=== PATIENT | female | born 1985 | race Caucasian/White ===

== ENCOUNTER → 2018-01-03 | Outpatient (CLI) | payer OTHER | END | disposition home or self-care (01) | LOC: PLD 08:29 → LAB SHORT 08:29 | DX: D22.39 Melanocytic nevi of other parts of face (principal); L82.1 Other seborrheic keratosis | CPT/HCPCS: 88305 ==

== ENCOUNTER → 2018-05-23 | Outpatient (CLI) | payer OTHER | END | disposition home or self-care (01) | LOC: LAB SHORT 11:03 → LAB EV 11:03 | DX: N39.0 Urinary tract infection, site not specified (principal) | CPT/HCPCS: 87077; 87086; 87186 ==

== ENCOUNTER → 2020-02-25 | Outpatient (CLI) | payer OTHER | LOC: LAB EV 15:50 → LAB SHORT 15:50 | DX: N39.0 Urinary tract infection, site not specified (principal) | CPT/HCPCS: 87077; 87086; 87186 ==

== ENCOUNTER → 2020-09-16 | Outpatient (CLI) | payer OTHER | END | disposition home or self-care (01) | LOC: LAB 10:34 → LAB SHORT 10:34 | DX: R35.0 Frequency of micturition (principal) | CPT/HCPCS: 87086 ==

== ENCOUNTER → 2020-09-28 | Outpatient (CLI) | payer OTHER | END | disposition home or self-care (01) | LOC: LAB SHORT 08:07 → LAB EV 08:07 | DX: R30.9 Painful micturition, unspecified (principal) | CPT/HCPCS: 87086 ==

== ENCOUNTER 2021-07-10 12:40 | Observation (INO) | payer OTHER ==
[~2021-07-10] VITALS: Ht 165.1 cm; Wt 90.7 kg
[2021-07-10 13:38] LABS: BASOPHILS ABSOLUTE AUTO 0.06 K/mm3 (0.00-0.23); BASOPHILS PERCENT AUTO 1 % (0-2); EOSINOPHILS ABSOLUTE AUTO 0.19 K/mm3 (0.00-0.68); EOSINOPHILS PERCENT AUTO 2 % (0-6); Hematocrit 41.2 % (33.0-51.0); IMMATURE GRAN ABSOLUTE AUTO 0.03 K/mm3 (0.00-0.10); IMMATURE GRAN PERCENT AUTO 0 % (0-1); LYMPHOCYTES ABSOLUTE AUTO 1.54 K/mm3 (0.84-5.20); LYMPHOCYTES PERCENT AUTO 12 % (21-46); MONOCYTES PERCENT AUTO 8 % (4-13); Mean Corpuscular HGB 26.6 pg (26.0-34.0); Mean Corpuscular HGB Conc 31.6 g/dL (31.5-36.5); Mean Corpuscular Volume 84 fL (80-100); Mean Platelet Volume 10.9 fL (9.1-12.4); NEUTROPHILS ABSOLUTE AUTO 9.63 K/mm3 (1.96-9.15); NEUTROPHILS PERCENT AUTO 77 % (41-73); Platelet Count 364 K/mm3 (150-400); RDW Coefficient Variation 13.2 % (11.7-14.2); RDW Standard Deviation 40.6 fL (35.1-46.3); Red Blood Cell Count 4.89 M/mm3 (3.80-5.20); White Blood Cell Count 12.45 K/mm3 (4.00-11.30)
[2021-07-10 13:52] LABS: International Normalized Ratio 1.04; Prothrombin Time Results 10.9 Sec (9.7-11.5)
[2021-07-10 13:54] LABS: Alanine Aminotransfer (ALT/SGP 188 U/L (12-78); Albumin, Blood 3.6 g/dL (3.4-5.0); Albumin/Globulin Ratio 0.9 (0.8-1.8); Alk Phos 378 U/L (50-136); Anion Gap 5 mmol/L (6-16); Aspartate Aminotrans (AST/SGOT 280 U/L (12-37); Bilirubin, Total 2.9 mg/dL (0.1-1.0); Blood Urea Nitrogen 12 mg/dL (8-24); CO2, Blood 24 mmol/L (21-32); Calcium, Blood 9.9 mg/dL (8.5-10.1); Chloride, Blood 110 mmol/L (98-108); Globulin, Blood 4.1 g/dL (2.2-4.0); Glomerular Filtration Rate >60 (60-); Glucose, Blood 123 mg/dL (70-99); Potassium, Blood 4.2 mmol/L (3.5-5.5); Sodium, Blood 139 mmol/L (136-145); Total Protein, Blood 7.7 g/dL (6.4-8.2)
[2021-07-10 13:55] LABS: Source, Urine Clean Catch
[2021-07-10 14:00] LABS: Appearance, Urine Hazy (Clear); Blood, Urine Neg (Neg); Color, Urine Amber (P-Yellow); Glucose Qualitative, Urine Neg (Neg); Ketones, Urine 2+ (Neg); Leukocyte Esterase, Urine 1+ (Neg); Nitrite, Urine Neg (Neg); Protein, Urine 2+ (Neg); Urobilinogen, Urine 2+ (Normal)
[2021-07-10 14:09] LABS: Bilirubin, Urine 2+ (Neg)
[2021-07-10 14:12] LABS: Amorphous Light (0-Heavy); Bacteria Many /hpf; Mucus Light (0-Heavy); Red Blood Cells, Urine 0-2 /hpf (0-2); Squamous Epithelial Cells Many /hpf (Few)
[2021-07-10 14:13] LABS: Hyaline Casts 0-2 /lpf (0-2); Transitional Epithelial Cells Rare /hpf (0-Rare)
[2021-07-10] MEDS ORDERED: CLON2 (14:13)
[2021-07-10] MEDS ORDERED: BUPROPION HCL200 MG PO (14:14)
[2021-07-10] MEDS ORDERED: QUET100 PO (14:15)
[2021-07-10] MEDS ORDERED: LAMO25 PO (14:15)
[2021-07-10 15:36] LABS: Influenza A, PCR NEGATIVE (NEGATIVE); Influenza B, PCR NEGATIVE (NEGATIVE); Resp Syncytial Virus, PCR NEGATIVE (NEGATIVE); SARS-Cov-2 (COVID-19) PCR, MMC NEGATIVE (NEGATIVE)
--- NOTE | 2021-07-10 16:12 | NUR ---
07/10/21 1612 Shae Holguin PATIENT IS ON SCHEDULED ANTIBIOTICS. RECEIVED ZOYSN 4.5GM PRIOR TO ARRIVING IN THE OR.
--- NOTE | 2021-07-10 18:06 | NUR ---
PT CAME IN TODAY FROM THE ED DIRECTLY TO SURGERY DUE TO CHOLECYSTITIS. PT HAD LAP XAVIER. PT ADMITTED BC OF ONE EPISODE OF BLACK EMESIS. PT DENIES USE OF NSAIDS. PT IS NOW HAVE 3 DRESSINGS AND VALERIE DRAIN ON HER RIGHT SIDE, OUTPUT MINIMAL AND BRIGHT RED. PT IS ASLEEP. DRESSING C/D/I. VSS. BED IS IN THE LOWEST POSITION AND CALL LIGHT WITHIN REACH
--- NOTE | 2021-07-10 20:38 | NUR ---
PT. REQUESTED TO EAT SOLID FOOD, NOTICED DIET ORDER OF DINNER TO START 07/11/21, NOTIFIED DR. CANELA VIA TEXT, MD ORDER RECEIVED THAT PT. CAN EAT, REGULAR DIET WAS THEN ORDERED.
--- NOTE | 2021-07-11 00:10 | NUR ---
REPORT TAKEN FROM DAWN TO ASSUME CARE OF PT AT THIS TIME. PT SLEEPING. WILL CONTINUE TO MONITOR.
[2021-07-11 03:56] LABS: BASOPHILS ABSOLUTE AUTO 0.02 K/mm3 (0.00-0.23); BASOPHILS PERCENT AUTO 0 % (0-2); EOSINOPHILS ABSOLUTE AUTO 0.02 K/mm3 (0.00-0.68); EOSINOPHILS PERCENT AUTO 0 % (0-6); Hematocrit 36.5 % (33.0-51.0); Hemoglobin 11.6 g/dL (11.5-16.0); IMMATURE GRAN ABSOLUTE AUTO 0.07 K/mm3 (0.00-0.10); IMMATURE GRAN PERCENT AUTO 0 % (0-1); LYMPHOCYTES PERCENT AUTO 5 % (21-46); MONOCYTES ABSOLUTE AUTO 0.45 K/mm3 (0.16-1.47); MONOCYTES PERCENT AUTO 3 % (4-13); Mean Corpuscular HGB 27.2 pg (26.0-34.0); Mean Corpuscular HGB Conc 31.8 g/dL (31.5-36.5); Mean Corpuscular Volume 86 fL (80-100); NEUTROPHILS ABSOLUTE AUTO 14.23 K/mm3 (1.96-9.15); NEUTROPHILS PERCENT AUTO 91 % (41-73); Platelet Count 328 K/mm3 (150-400); RDW Coefficient Variation 13.5 % (11.7-14.2); RDW Standard Deviation 41.9 fL (35.1-46.3); Red Blood Cell Count 4.27 M/mm3 (3.80-5.20); White Blood Cell Count 15.59 K/mm3 (4.00-11.30)
[2021-07-11 04:12] LABS: Anion Gap 5 mmol/L (6-16); Blood Urea Nitrogen 9 mg/dL (8-24); Bun/Creatinine Ratio 12.6 (12.0-20.0); CO2, Blood 25 mmol/L (21-32); Calcium, Blood 9.1 mg/dL (8.5-10.1); Chloride, Blood 110 mmol/L (98-108); Creatinine, Blood 0.72 mg/dL (0.40-1.00); Glomerular Filtration Rate >60 (60-); Glucose, Blood 143 mg/dL (70-99); Potassium, Blood 4.9 mmol/L (3.5-5.5); Sodium, Blood 140 mmol/L (136-145)
--- NOTE | 2021-07-11 04:35 | NUR ---
SHIFT SUMMARY NO ACUTE CHANGES TO REPORT THIS SHIFT. ASSUMED CARE OF PT AROUND 2330. PT HAS RESTED WELL, PAIN IS WELL CONTROLLED WITH OXYCODONE. VITALS ARE STABLE. PT TOLERATING AN ADVANCE IN HER DIET. AMBULATES WELL WITH SBA. LAP SITES WNL. BED IN LOWEST POSITION, CALL LIGHT WITHIN REACH,
[2021-07-11] MEDS ORDERED: OXYC10TA19 PO (13:05)
--- NOTE | 2021-07-11 13:20 | NUR ---
DISCHARGE SUMMARY ALERT AND ORIENTED. TOLERATING REGULAR DIET AND FLUIDS. AMBULATING INDEPENDENTLY IN ROOM TO BATHROOM. AMBULATING IN HALLS. ABD INCISIONS INTACT WITH MINIMAL DRAINAGE. VALERIE DRAIN DC'D BY DR CANELA THIS AM. IV DC'D WNL. DISCHARGE ORDER OBTAINED. DISCHARGE EDUCATION GIVEN ON WOUND CARE, ACTIVITY, DIET, NEW RXS, AND FOLLOW UP. PATIENT WAITING ROOM AT THIS TIME FOR SPOUSE TO BRING CLOTHES AND WILL THEN LEAVE.
== END 2021-07-11 13:40 | disposition home or self-care (01) ==
LOC: ER 12:40 → SURS 12:41 → ER 15:27 → SURS 17:09
PROVIDERS: Physician Assistant; Surgery; ADMIT Internal Medicine
PROC: 0FT44ZZ Resection of Gallbladder, Percutaneous Endoscopic Approach (ICD-10-PCS; principal; 2021-07-10 15:08)
PROC: BF03YZZ Plain Radiography of Gallbladder and Bile Ducts using Other Contrast (ICD-10-PCS; principal; 2021-07-10 15:08)
DX: K80.10 Calculus of gallbladder with chronic cholecystitis without obstruction (principal); E78.5 Hyperlipidemia, unspecified; E66.9 Obesity, unspecified; F31.9 Bipolar disorder, unspecified; E66.01 Morbid (severe) obesity due to excess calories; E28.2 Polycystic ovarian syndrome; Z88.1 Allergy status to other antibiotic agents; Z20.822 Contact with and (suspected) exposure to COVID-19
CPT/HCPCS: 0241U; 36415; 74300; 76705; 80048; 80053; 81001; 81025; 82247; 82248; 82272; 83690; 83735; 85025; 85610; 85730; 86850; 86900; 86901; 87086; 88304; 96374; 96375; 99285-25; A9270; C1729; C9113; G0378; J1100; J1885; J2370; J2405; J2543; J2704; J3010; J7030; J7120

== ENCOUNTER 2021-07-15 05:32 | Inpatient (IN) | payer OTHER ==
[~2021-07-15] VITALS: Ht 165.1 cm; Wt 91.6 kg
[~2021-07-15 05:32] MED LIST: BUPROPION HCL200 MG PO; CLON2; LAMO25 PO; OXYC10TA19 PO; QUET100 PO
[2021-07-15 06:02] LABS: Source, Urine Clean Catch
[2021-07-15 06:08] LABS: BASOPHILS ABSOLUTE AUTO 0.06 K/mm3 (0.00-0.23); BASOPHILS PERCENT AUTO 0 % (0-2); EOSINOPHILS ABSOLUTE AUTO 0.36 K/mm3 (0.00-0.68); EOSINOPHILS PERCENT AUTO 2 % (0-6); Hematocrit 37.7 % (33.0-51.0); Hemoglobin 12.1 g/dL (11.5-16.0); IMMATURE GRAN PERCENT AUTO 1 % (0-1); LYMPHOCYTES ABSOLUTE AUTO 2.99 K/mm3 (0.84-5.20); LYMPHOCYTES PERCENT AUTO 16 % (21-46); MONOCYTES ABSOLUTE AUTO 1.34 K/mm3 (0.16-1.47); MONOCYTES PERCENT AUTO 7 % (4-13); Mean Corpuscular HGB 26.8 pg (26.0-34.0); Mean Corpuscular HGB Conc 32.1 g/dL (31.5-36.5); Mean Corpuscular Volume 83 fL (80-100); NEUTROPHILS ABSOLUTE AUTO 13.66 K/mm3 (1.96-9.15); NEUTROPHILS PERCENT AUTO 74 % (41-73); Platelet Count 341 K/mm3 (150-400); RDW Coefficient Variation 13.6 % (11.7-14.2); RDW Standard Deviation 41.2 fL (35.1-46.3); Red Blood Cell Count 4.52 M/mm3 (3.80-5.20); White Blood Cell Count 18.51 K/mm3 (4.00-11.30)
[2021-07-15 06:10] LABS: Bilirubin, Urine Neg (Neg); Blood, Urine 1+ (Neg); Glucose Qualitative, Urine Neg (Neg); Ketones, Urine 2+ (Neg); Leukocyte Esterase, Urine 1+ (Neg); Nitrite, Urine Neg (Neg); Protein, Urine 1+ (Neg); Urobilinogen, Urine 2+ (Normal)
[2021-07-15 06:16] LABS: Appearance, Urine Hazy (Clear); Color, Urine Yellow (P-Yellow)
[2021-07-15 06:17] LABS: Bacteria Mod /hpf; Red Blood Cells, Urine 0-2 /hpf (0-2); Squamous Epithelial Cells Few /hpf (Few)
[2021-07-15 06:27] LABS: Alanine Aminotransfer (ALT/SGP 173 U/L (12-78); Albumin, Blood 2.9 g/dL (3.4-5.0); Albumin/Globulin Ratio 0.7 (0.8-1.8); Alk Phos 440 U/L (50-136); Anion Gap 9 mmol/L (6-16); Aspartate Aminotrans (AST/SGOT 117 U/L (12-37); Bilirubin, Direct 1.3 mg/dL (0.0-0.3); Bilirubin, Indirect 0.5 mg/dL (0.1-0.7); Bilirubin, Total 1.8 mg/dL (0.1-1.0); Blood Urea Nitrogen 8 mg/dL (8-24); Bun/Creatinine Ratio 12.7 (12.0-20.0); CO2, Blood 24 mmol/L (21-32); Calcium, Blood 9.1 mg/dL (8.5-10.1); Chloride, Blood 107 mmol/L (98-108); Creatinine, Blood 0.63 mg/dL (0.40-1.00); Globulin, Blood 4.2 g/dL (2.2-4.0); Glomerular Filtration Rate >60 (60-); Glucose, Blood 180 mg/dL (70-99); Potassium, Blood 3.1 mmol/L (3.5-5.5); Sodium, Blood 140 mmol/L (136-145); Total Protein, Blood 7.1 g/dL (6.4-8.2)
[2021-07-15] MEDS ORDERED: FANAPT8 MG PO (14:33)
[2021-07-15] MEDS ORDERED: ESCI20 PO (14:34)
[2021-07-15] MEDS ORDERED: OMEP20ER PO (17:24)
[2021-07-16 03:39] LABS: BASOPHILS ABSOLUTE AUTO 0.04 K/mm3 (0.00-0.23); BASOPHILS PERCENT AUTO 0 % (0-2); EOSINOPHILS ABSOLUTE AUTO 0.08 K/mm3 (0.00-0.68); EOSINOPHILS PERCENT AUTO 0 % (0-6); Hematocrit 32.9 % (33.0-51.0); Hemoglobin 10.6 g/dL (11.5-16.0); IMMATURE GRAN ABSOLUTE AUTO 0.09 K/mm3 (0.00-0.10); IMMATURE GRAN PERCENT AUTO 1 % (0-1); LYMPHOCYTES ABSOLUTE AUTO 1.56 K/mm3 (0.84-5.20); LYMPHOCYTES PERCENT AUTO 8 % (21-46); MONOCYTES ABSOLUTE AUTO 1.58 K/mm3 (0.16-1.47); MONOCYTES PERCENT AUTO 8 % (4-13); Mean Corpuscular HGB 27.1 pg (26.0-34.0); Mean Corpuscular HGB Conc 32.2 g/dL (31.5-36.5); Mean Corpuscular Volume 84 fL (80-100); Mean Platelet Volume 10.6 fL (9.1-12.4); NEUTROPHILS ABSOLUTE AUTO 15.85 K/mm3 (1.96-9.15); NEUTROPHILS PERCENT AUTO 83 % (41-73); Platelet Count 271 K/mm3 (150-400); RDW Coefficient Variation 14.3 % (11.7-14.2); RDW Standard Deviation 43.8 fL (35.1-46.3); Red Blood Cell Count 3.91 M/mm3 (3.80-5.20)
--- NOTE | 2021-07-16 04:03 | NUR ---
PT C/O UNCONTROLLED PAIN, TACHY,LABS DRAWN EARLY. I CALLED DR SANCHEZ AND REVIEWED CBC RESULTS, ADVISED PT CALLING FOR PAIN MEDS MORE FREQUENT THAN THE Q2 HRS ORDERED.PT STATED CLR LIQS DID NOT APPEAR TO MAKE PAIN WORSE. ORDERED NORCO 5 MG X1PO.VERB TO REASSURE THIS IS EXPECTED WITH PTS PANCREATITIS.
[2021-07-16 04:12] LABS: Alanine Aminotransfer (ALT/SGP 128 U/L (12-78); Albumin, Blood 2.2 g/dL (3.4-5.0); Albumin/Globulin Ratio 0.6 (0.8-1.8); Alk Phos 347 U/L (50-136); Anion Gap 5 mmol/L (6-16); Aspartate Aminotrans (AST/SGOT 67 U/L (12-37); Bilirubin, Total 0.9 mg/dL (0.1-1.0); Blood Urea Nitrogen 11 mg/dL (8-24); Bun/Creatinine Ratio 18.6 (12.0-20.0); CO2, Blood 26 mmol/L (21-32); Calcium, Blood 8.4 mg/dL (8.5-10.1); Chloride, Blood 107 mmol/L (98-108); Creatinine, Blood 0.59 mg/dL (0.40-1.00); Globulin, Blood 3.7 g/dL (2.2-4.0); Glomerular Filtration Rate >60 (60-); Glucose, Blood 109 mg/dL (70-99); Potassium, Blood 4.3 mmol/L (3.5-5.5); Sodium, Blood 138 mmol/L (136-145); Total Protein, Blood 5.9 g/dL (6.4-8.2)
--- NOTE | 2021-07-16 07:26 | NUR ---
SUMMARY PT VERB IMPROVED PAINCONTROL WITH ADDITION OF NORCO.
--- NOTE | 2021-07-16 12:06 | NUR ---
Pt. is in bed, but responds to my entry. Pt. welcomes my visit. Lt. is unsettled by the ocassional spiking pain. Listen empethically. Establish rapport. Pt. displayed evidence of encouragement. Prayed for pt. Pt. verbalized gratitude for the spiritual care visit.
--- NOTE | 2021-07-16 18:10 | NUR ---
Spiritual Care follow up. Check on Pt. In bed resting. Pt. responds when I enter room. Pt. welcomes my visit. Pt. displays evidence of significantly reduced pain. Encourage pt. through pastoral care and therapeutic listening. Pt. verbalized gratitude for checking in on her.
--- NOTE | 2021-07-16 18:26 | NUR ---
SHIFT SUMMARY A/OX4, VSS, TOLERATING PO THOUGH PT REPORTS NOT FEELING HUNGRY AND HENCE HAD POOR PO INTAKE TODAY, INDEPENDENT IN HER ROOM, VOIDING WELL. HAD SOME DIFFICULTIES WITH PAIN MANAGEMENT TODAY AND REPORTED NEEDING PAIN MEDS PRIOR TO THEM BEING AVAILABLE BY 15 MINUTES THOUGH THIS WAS IMPROVED AFTER GETTING ORAL PAIN MEDS ADDED ON. BIOX IN PLACE, PT GETS TACHY IN THE 140S-150S WHEN SHE GETS UP TO USE THE BATHROOM. O2 SATS DROPPED TO 91% WHEN GIVEN ORAL AND IV PAIN MEDICATION TOO CLOSE TOGETHER BUT RESPIRATIONS STAYED ABOVE 12 AND O2 NEVER DROPPED BELOW THE 91%. CALL LIGHT IN REACH, WILL CTM AND REPORT TO NOC RN.
--- NOTE | 2021-07-17 01:49 | NUR ---
SYMPTOMS OF SLEEP APNEA WHILE SLEEPING, PT'S SATS DROPPED TO 83% ON ROOM AIR, AND WOULD BOUNCE BACK UP TO 90%. RN OBSERVED PT SNORING. PT STATED THAT HER PCP HAD RECOMMENDED A SLEEP STUDY BECAUSE SHE REGULARLY FEELS FATIGUED DURING THE DAY, BUT SHE HAS NOT YET COMPLETED THE STUDY.
--- NOTE | 2021-07-17 01:53 | NUR ---
CORRESPONDENCE WITH DR. SANCHEZ AT 0140, PT'S BEGAN TO DESAT AGAIN WHILE SLEEPING. HER O2 LEVEL DROPPED TO 76% ON ROOM AIR. PER DR. SANCHEZ, OK TO START PRN OXYGEN AND D/C LACTATED RINGERS. ORDERS UPDATED. RN APPLIED NASAL CANULA, 1LPM. PT IS NOW MAINTAINING SATS OF 96% WHILE SLEEPING.
[2021-07-17 04:15] LABS: BASOPHILS ABSOLUTE AUTO 0.05 K/mm3 (0.00-0.23); BASOPHILS PERCENT AUTO 0 % (0-2); EOSINOPHILS ABSOLUTE AUTO 0.45 K/mm3 (0.00-0.68); EOSINOPHILS PERCENT AUTO 2 % (0-6); Hemoglobin 9.5 g/dL (11.5-16.0); IMMATURE GRAN ABSOLUTE AUTO 0.29 K/mm3 (0.00-0.10); IMMATURE GRAN PERCENT AUTO 1 % (0-1); LYMPHOCYTES ABSOLUTE AUTO 1.68 K/mm3 (0.84-5.20); LYMPHOCYTES PERCENT AUTO 8 % (21-46); MONOCYTES ABSOLUTE AUTO 1.83 K/mm3 (0.16-1.47); MONOCYTES PERCENT AUTO 9 % (4-13); Mean Corpuscular HGB 27.2 pg (26.0-34.0); Mean Corpuscular HGB Conc 31.7 g/dL (31.5-36.5); Mean Corpuscular Volume 86 fL (80-100); Mean Platelet Volume 10.7 fL (9.1-12.4); NEUTROPHILS ABSOLUTE AUTO 16.33 K/mm3 (1.96-9.15); NEUTROPHILS PERCENT AUTO 79 % (41-73); Platelet Count 248 K/mm3 (150-400); RDW Coefficient Variation 14.9 % (11.7-14.2); RDW Standard Deviation 45.7 fL (35.1-46.3); Red Blood Cell Count 3.49 M/mm3 (3.80-5.20); White Blood Cell Count 20.63 K/mm3 (4.00-11.30)
[2021-07-17 04:33] LABS: Alanine Aminotransfer (ALT/SGP 76 U/L (12-78); Albumin, Blood 2.1 g/dL (3.4-5.0); Albumin/Globulin Ratio 0.6 (0.8-1.8); Alk Phos 260 U/L (50-136); Anion Gap 4 mmol/L (6-16); Aspartate Aminotrans (AST/SGOT 24 U/L (12-37); Bilirubin, Total 0.9 mg/dL (0.1-1.0); Blood Urea Nitrogen 6 mg/dL (8-24); Bun/Creatinine Ratio 9.7 (12.0-20.0); CO2, Blood 27 mmol/L (21-32); Calcium, Blood 8.6 mg/dL (8.5-10.1); Chloride, Blood 108 mmol/L (98-108); Creatinine, Blood 0.62 mg/dL (0.40-1.00); Globulin, Blood 3.7 g/dL (2.2-4.0); Glomerular Filtration Rate >60 (60-); Glucose, Blood 86 mg/dL (70-99); Potassium, Blood 4.1 mmol/L (3.5-5.5); Sodium, Blood 139 mmol/L (136-145); Total Protein, Blood 5.8 g/dL (6.4-8.2)
--- NOTE | 2021-07-17 07:22 | NUR ---
SHIFT SUMMARY PT REMAINED ABOVE 90% OXYGENATION ON 1LPM VIA NASAL CANULA WHILE SLEEPING. C/O PAIN TO HER BACK AND STOMACH, TREATED WITH PRN PAIN MEDICATION AND HEAT/ICE THERAPY. ABLE TO VOID INDEPENDENTLY. PT CAN BECOME ANXIOUS WITH PAIN. CONTINUOUS BIOX - SINUS TACHY 100'S, WHICH WILL JUMP TO 140'S WITH EXERTION OF WALKING TO THE BATHROOM. VITAL SIGNS STABLE.
--- NOTE | 2021-07-17 15:23 | NUR ---
SHIFT SUMMARY A/OX4, HEART RATE GETS TACHY c AMBULATION BUT HAS BEEN IMPROVED TODAY COMPARED TO YESTERDAY, INTERMITTENTLY DESATS WHILE SLEEPING R/T PAIN MANAGEMENT, AMBULATES INDEPENDENTLY IN ROOM AND HALLS, PAIN HAS BEEN BETTER MANAGED TODAY WITH LESS REQUESTS FOR PAIN MEDICATIONS THOUGH PT IS STILL REPORTING HIGH NUMBERS. NO ACUTE EVENTS TODAY, WILL CTM AND REPORT TO ONCOMING NOC RN. CALL LIGHT IN REACH
--- NOTE | 2021-07-18 05:01 | NUR ---
SHIFT SUMMARY: NICHELLE IS A&OX4. VSS WITH THE TACHYCARDIA UPON EXERTION NOTED (PT DENIES ANY FEELING THAT HER HEART IS BEATING QUICKLY, DIZZINESS, OR LIGHTHEADEDNESS), NO ACUTE EVENTS OVERNIGHT. SHE IS INDEPENDENT IN THE ROOM, DENIES DIFFICULY URINATING, STATES SHE HAS NOT HAD A BM SINCE MONDAY, AND IS TOLERATING FULL LIQUIDS. SHE REPORTS THAT THE TORADOL HAS CONTRIBUTED SIGNIFICANTLY TO IMPROVING HER PAIN CONTROL. SHE HAS REQUIRED 1-2 L TO MAINTAIN HER O2 SATS >90% WHILE SLEEPING THIS SHIFT, NO O2 NEEDED WHEN PT IS AWAKE. IV TO R HAND PATENT, PT USES THE CALL LIGHT APPROPRIATELY. SHE IS LYING IN BED WITH THE CONTINUOUS PULSE OX IN PLACE AND CALL LIGHT IN REACH. WILL CONTINUE TO MONITOR UNTIL REPORT IS GIVEN TO DAY SHIFT RN.
--- NOTE | 2021-07-18 08:18 | NUR ---
ORAL CONTRAST STARTED AT APROX 0815
[2021-07-18] MEDS ORDERED: Percocet 5-3251 EACH PO (14:21)
--- NOTE | 2021-07-18 15:01 | NUR ---
DISCHARGE PT TRIALED ON RA FROM APROX [id number], PT O2 SAT 95% ON RA, PT USING IS DISCHARGED HOME FROM UNIT AT APROX 1501. PT GIVEN WRITTEN AND VERBAL DC INSTRUCTIONS AND VERBALIZED UNDERSTANDING. WC TO CAR
== END 2021-07-18 14:59 | disposition home or self-care (01) | DRG 440 ==
LOC: ER 05:32 → SURS 09:34
PROVIDERS: Student in an Organized Health Care Education/Training Program; ADMIT Surgery
DX: K85.10 Biliary acute pancreatitis without necrosis or infection (principal); K80.50 Calculus of bile duct without cholangitis or cholecystitis without obstruction; D72.829 Elevated white blood cell count, unspecified; E66.9 Obesity, unspecified; Z68.34 Body mass index [BMI] 34.0-34.9, adult; F31.9 Bipolar disorder, unspecified; E78.5 Hyperlipidemia, unspecified; G47.33 Obstructive sleep apnea (adult) (pediatric); Z28.21 Immunization not carried out because of patient refusal; Z90.49 Acquired absence of other specified parts of digestive tract; Z79.899 Other long term (current) drug therapy
CPT/HCPCS: 36415; 74177; 74181; 80048; 80053; 80076; 81001; 81025; 83605; 83615; 83690; 85025; 87040; 87077; 87086; 87186; 94762; 96374; 96375; 96376; 99285-25; A9270; J1170; J1630; J1885; J2405; J2543; J3010; J7030; J7120; Q9967

== ENCOUNTER → 2021-07-22 | Outpatient (CLI) | payer OTHER ==
[~2021-07-22] MED LIST changes: +ESCI20 PO; +FANAPT8 MG PO; +OMEP20ER PO; +Percocet 5-3251 EACH PO
[2021-07-22 16:29] LABS: BASOPHILS ABSOLUTE AUTO 0.07 K/mm3 (0.00-0.23); BASOPHILS PERCENT AUTO 0 % (0-2); EOSINOPHILS PERCENT AUTO 5 % (0-6); Hematocrit 32.7 % (33.0-51.0); Hemoglobin 10.3 g/dL (11.5-16.0); IMMATURE GRAN ABSOLUTE AUTO 0.13 K/mm3 (0.00-0.10); IMMATURE GRAN PERCENT AUTO 1 % (0-1); LYMPHOCYTES ABSOLUTE AUTO 2.37 K/mm3 (0.84-5.20); LYMPHOCYTES PERCENT AUTO 14 % (21-46); MONOCYTES ABSOLUTE AUTO 0.91 K/mm3 (0.16-1.47); MONOCYTES PERCENT AUTO 5 % (4-13); Mean Corpuscular HGB 26.9 pg (26.0-34.0); Mean Corpuscular HGB Conc 31.5 g/dL (31.5-36.5); Mean Corpuscular Volume 85 fL (80-100); Mean Platelet Volume 9.7 fL (9.1-12.4); NEUTROPHILS ABSOLUTE AUTO 12.82 K/mm3 (1.96-9.15); NEUTROPHILS PERCENT AUTO 75 % (41-73); Platelet Count 626 K/mm3 (150-400); RDW Standard Deviation 46.1 fL (35.1-46.3); Red Blood Cell Count 3.83 M/mm3 (3.80-5.20)
[2021-07-22 16:39] LABS: Alanine Aminotransfer (ALT/SGP 34 U/L (12-78); Albumin, Blood 2.6 g/dL (3.4-5.0); Albumin/Globulin Ratio 0.5 (0.8-1.8); Alk Phos 252 U/L (40-126); Anion Gap 9 mmol/L (6-16); Aspartate Aminotrans (AST/SGOT 29 U/L (12-37); Bilirubin, Total 0.4 mg/dL (0.1-1.0); Blood Urea Nitrogen 9 mg/dL (8-24); Bun/Creatinine Ratio 9.1 (12.0-20.0); CO2, Blood 28 mmol/L (21-32); Calcium, Blood 9.6 mg/dL (8.5-10.1); Chloride, Blood 104 mmol/L (98-108); Creatinine, Blood 0.99 mg/dL (0.40-1.00); Globulin, Blood 5.7 g/dL (2.2-4.0); Glomerular Filtration Rate >60 (60-); Glucose, Blood 86 mg/dL (70-99); Potassium, Blood 4.1 mmol/L (3.5-5.5); Sodium, Blood 141 mmol/L (136-145); Total Protein, Blood 8.3 g/dL (6.4-8.2)
== END | disposition home or self-care (01) ==
LOC: LAB SHORT 16:08
PROVIDERS: Physician Assistant
DX: K85.10 Biliary acute pancreatitis without necrosis or infection (principal)
CPT/HCPCS: 80053; 83690; 85025

== ENCOUNTER 2021-08-07 18:37 | Emergency (ER) | payer OTHER ==
[~2021-08-07] VITALS: Ht 165.1 cm; Wt 85.7 kg
[2021-08-07 19:42] LABS: BASOPHILS ABSOLUTE AUTO 0.08 K/mm3 (0.00-0.23); BASOPHILS PERCENT AUTO 1 % (0-2); EOSINOPHILS ABSOLUTE AUTO 0.11 K/mm3 (0.00-0.68); EOSINOPHILS PERCENT AUTO 1 % (0-6); Hematocrit 36.9 % (33.0-51.0); Hemoglobin 11.7 g/dL (11.5-16.0); IMMATURE GRAN ABSOLUTE AUTO 0.02 K/mm3 (0.00-0.10); IMMATURE GRAN PERCENT AUTO 0 % (0-1); LYMPHOCYTES ABSOLUTE AUTO 2.38 K/mm3 (0.84-5.20); LYMPHOCYTES PERCENT AUTO 27 % (21-46); MONOCYTES ABSOLUTE AUTO 0.74 K/mm3 (0.16-1.47); MONOCYTES PERCENT AUTO 8 % (4-13); Mean Corpuscular HGB 26.5 pg (26.0-34.0); Mean Corpuscular HGB Conc 31.7 g/dL (31.5-36.5); Mean Corpuscular Volume 84 fL (80-100); Mean Platelet Volume 11.1 fL (9.1-12.4); NEUTROPHILS ABSOLUTE AUTO 5.63 K/mm3 (1.96-9.15); NEUTROPHILS PERCENT AUTO 63 % (41-73); Platelet Count 416 K/mm3 (150-400); RDW Coefficient Variation 14.1 % (11.7-14.2); RDW Standard Deviation 43.3 fL (35.1-46.3); Red Blood Cell Count 4.41 M/mm3 (3.80-5.20); White Blood Cell Count 8.96 K/mm3 (4.00-11.30)
[2021-08-07 20:08] LABS: Alanine Aminotransfer (ALT/SGP 22 U/L (12-78); Albumin, Blood 3.9 g/dL (3.4-5.0); Albumin/Globulin Ratio 0.9 (0.8-1.8); Alk Phos 139 U/L (50-136); Anion Gap 6 mmol/L (6-16); Aspartate Aminotrans (AST/SGOT 15 U/L (12-37); Bilirubin, Total 0.3 mg/dL (0.1-1.0); Blood Urea Nitrogen 12 mg/dL (8-24); Bun/Creatinine Ratio 14.3 (12.0-20.0); CO2, Blood 26 mmol/L (21-32); Calcium, Blood 9.9 mg/dL (8.5-10.1); Chloride, Blood 109 mmol/L (98-108); Creatinine, Blood 0.84 mg/dL (0.40-1.00); Globulin, Blood 4.2 g/dL (2.2-4.0); Glomerular Filtration Rate >60 (60-); Glucose, Blood 98 mg/dL (70-99); Potassium, Blood 3.7 mmol/L (3.5-5.5); Sodium, Blood 141 mmol/L (136-145); Total Protein, Blood 8.1 g/dL (6.4-8.2)
== END 2021-08-07 21:59 | disposition home or self-care (01) ==
LOC: ER 18:37
PROVIDERS: Student in an Organized Health Care Education/Training Program
DX: R10.9 Unspecified abdominal pain (principal); Z88.1 Allergy status to other antibiotic agents; Z79.899 Other long term (current) drug therapy; Z90.49 Acquired absence of other specified parts of digestive tract
CPT/HCPCS: 36415; 74177; 80053; 83690; 85025; 99284-25; Q9967

== ENCOUNTER → 2022-05-18 | Outpatient (CLI) | payer OTHER ==
[2022-05-26 03:08] LABS: HPV 16 Negative (Negative); HPV 18 Negative (Negative); HPV OTHER HR TYPES Negative (Negative)
== END ==
LOC: LAB 10:30 → LAB SHORT 10:30
PROVIDERS: Obstetrics & Gynecology
DX: Z12.4 Encounter for screening for malignant neoplasm of cervix (principal)
CPT/HCPCS: 87624; G0145

== ENCOUNTER 2023-02-25 05:30 | Inpatient (IN) | payer OTHER ==
[2023-02-25] VITALS (37 sets, daily range): BP systolic 121–182; BP diastolic 55–99
[2023-02-25 06:33] LABS: BASOPHILS ABSOLUTE AUTO 0.03 K/mm3 (0.00-0.23); BASOPHILS PERCENT AUTO 0 % (0-2); EOSINOPHILS ABSOLUTE AUTO 0.15 K/mm3 (0.00-0.68); EOSINOPHILS PERCENT AUTO 1 % (0-6); Hemoglobin 11.8 g/dL (11.5-16.0); IMMATURE GRAN ABSOLUTE AUTO 0.08 K/mm3 (0.00-0.10); IMMATURE GRAN PERCENT AUTO 1 % (0-1); LYMPHOCYTES ABSOLUTE AUTO 2.78 K/mm3 (0.84-5.20); LYMPHOCYTES PERCENT AUTO 22 % (21-46); MONOCYTES ABSOLUTE AUTO 0.96 K/mm3 (0.16-1.47); MONOCYTES PERCENT AUTO 7 % (4-13); Mean Corpuscular HGB 29.4 pg (26.0-34.0); Mean Corpuscular HGB Conc 33.7 g/dL (31.5-36.5); Mean Corpuscular Volume 87 fL (80-100); Mean Platelet Volume 12.7 fL (9.1-12.4); NEUTROPHILS ABSOLUTE AUTO 8.96 K/mm3 (1.96-9.15); NEUTROPHILS PERCENT AUTO 69 % (41-73); Platelet Count 199 K/mm3 (150-400); RDW Coefficient Variation 12.7 % (11.7-14.2); RDW Standard Deviation 40.5 fL (35.1-46.3); Red Blood Cell Count 4.01 M/mm3 (3.80-5.20); White Blood Cell Count 12.96 K/mm3 (4.00-11.30)
[2023-02-26 07:09] VITALS: BP 125/68
[2023-02-26 07:16] LABS: BASOPHILS ABSOLUTE AUTO 0.05 K/mm3 (0.00-0.23); BASOPHILS PERCENT AUTO 0 % (0-2); EOSINOPHILS ABSOLUTE AUTO 0.14 K/mm3 (0.00-0.68); EOSINOPHILS PERCENT AUTO 1 % (0-6); Hematocrit 29.6 % (33.0-51.0); Hemoglobin 9.7 g/dL (11.5-16.0); IMMATURE GRAN ABSOLUTE AUTO 0.09 K/mm3 (0.00-0.10); IMMATURE GRAN PERCENT AUTO 1 % (0-1); LYMPHOCYTES ABSOLUTE AUTO 2.69 K/mm3 (0.84-5.20); LYMPHOCYTES PERCENT AUTO 21 % (21-46); MONOCYTES ABSOLUTE AUTO 0.77 K/mm3 (0.16-1.47); MONOCYTES PERCENT AUTO 6 % (4-13); Mean Corpuscular HGB 29.4 pg (26.0-34.0); Mean Corpuscular HGB Conc 32.8 g/dL (31.5-36.5); Mean Corpuscular Volume 90 fL (80-100); Mean Platelet Volume 11.8 fL (9.1-12.4); NEUTROPHILS ABSOLUTE AUTO 8.95 K/mm3 (1.96-9.15); NEUTROPHILS PERCENT AUTO 71 % (41-73); Platelet Count 177 K/mm3 (150-400); RDW Coefficient Variation 13.1 % (11.7-14.2); RDW Standard Deviation 42.9 fL (35.1-46.3); White Blood Cell Count 12.69 K/mm3 (4.00-11.30)
[2023-02-26 13:27] VITALS: BP 117/54
[2023-02-26 16:04] VITALS: BP 138/64
[2023-02-26 17:57] VITALS: BP 111/56
[2023-02-26] MEDS ORDERED: LAMO25 PO (17:59)
[2023-02-26] MEDS ORDERED: QUET25 PO (18:00)
--- NOTE | 2023-02-26 18:41 | NUR ---
PATIENT DISCHARGE EDUCATION REVIEWED WITH THE PATIENT AND SO. RN ADVISED THE IMPORTANCE OF MONITORING BLEEDING, HEADACHE, VISION CHANGES, S/S OF BLOOD CLOTS, CHEST PAIN, OR SOB. EDUCATED PATIENT ON DEPRESSION/ANXIETY VS BLUES. ADVISED ON CARE, AND PAIN MANAGEMENT. PATIENT VERBALIZED UNDERSTANDING, DENIED ANY FURTHER QUESTIONS OR CONCERNS AT THIS TIME. DISCHARGE VITAL SIGNS STABLE. IV D/C, WNL. PATIENT DISCHARGED TO [facility].
== END 2023-02-26 18:49 | disposition home or self-care (01) | DRG 807 ==
LOC: OBS 05:30 → BC 05:33 → OBS 06:01 → BC 06:03
PROVIDERS: ADMIT Obstetrics & Gynecology
PROC: 10E0XZZ Delivery of Products of Conception, External Approach (ICD-10-PCS; principal; 2023-02-25)
PROC: 0KQM0ZZ Repair Perineum Muscle, Open Approach (ICD-10-PCS; 2023-02-25)
DX: O42.02 Full-term premature rupture of membranes, onset of labor within 24 hours of rupture (principal); Z37.0 Single live birth; Z3A.37 37 weeks gestation of pregnancy; Z88.1 Allergy status to other antibiotic agents; O70.1 Second degree perineal laceration during delivery
CPT/HCPCS: 36415; 85025; 86850; 86900; 86901; A9270; J0290; J1885; J2405; J2590; J3010; J7120

== ENCOUNTER 2023-05-14 13:24 | Emergency (ER) | payer MEDICARE, OTHER ==
[~2023-05-14] VITALS: Ht 162.6 cm; Wt 99.8 kg
[~2023-05-14 13:24] MED LIST changes: +QUET25 PO
[2023-05-14 13:33] VITALS: BP 152/95
[2023-05-14] MEDS ORDERED: Bactrim Ds Tab1 EACH PO (15:35)
== END 2023-05-14 15:42 | disposition home or self-care (01) ==
LOC: ER 13:24
DX: N76.4 Abscess of vulva (principal); F31.9 Bipolar disorder, unspecified; Z79.899 Other long term (current) drug therapy; Z88.1 Allergy status to other antibiotic agents
CPT/HCPCS: 99283; A9270

== ENCOUNTER 2024-07-10 00:35 | Emergency (ER) | payer MEDICARE, OTHER ==
[~2024-07-10] VITALS: Ht 165.1 cm; Wt 99.8 kg
[~2024-07-10 00:35] MED LIST changes: +Bactrim Ds Tab1 EACH PO
[2024-07-10 00:44] VITALS: BP 165/86
[2024-07-10] MEDS ORDERED: Dexamethasone Sod Phos 10 MG/ML 1ML VIAL IV ONE (01:25)
[2024-07-10] MEDS ORDERED: NS 1,000 ML IV SCH (01:25)
[2024-07-10] MEDS ORDERED: Prochlorperazine Edisylate 10 mg Vial IV ONE (01:25)
[2024-07-10] MEDS ORDERED: DiphenhydrAMINE HCl 50 MG/ML 1ML Vial IV ONE (01:25)
== END 2024-07-10 02:40 | disposition home or self-care (01) ==
LOC: ER 00:35
DX: G43.909 Migraine, unspecified, not intractable, without status migrainosus (principal); Z79.899 Other long term (current) drug therapy; Z88.1 Allergy status to other antibiotic agents
CPT/HCPCS: 96361; 96374; 96375; 99283-25; J0780; J1100; J1200; J7030